=== PATIENT | female | born 1960 | race Caucasian/White ===

== ENCOUNTER 2018-10-09 06:45 | Day surgery (SDC) | payer OTHER ==
[~2018-10-09] VITALS: Ht 157.5 cm; Wt 79.2 kg
[2018-10-09] VITALS (9 sets, daily range): BP systolic 133–142; BP diastolic 69–83; PULSE 86–97; RESP 12–21; Ht 157.5 cm; Wt 79.2 kg
[2018-10-09] MEDS ORDERED: CEFAZOLIN 2 GM/50 ML (PMX) 50 ML IVPB SCH (07:00)
[2018-10-09] MEDS ORDERED: PIOG30TA12 PO (09:47)
[2018-10-09] MEDS ORDERED: METF100010 PO (09:47)
[2018-10-09] MEDS ORDERED: LISI2.5T59 PO (09:48)
[2018-10-09] MEDS ORDERED: SIMV20TA PO (09:48)
[2018-10-09] MEDS ORDERED: PANT40TA3 PO (09:48)
--- NOTE | 2018-10-09 11:03 | PREAC ---
Date/Time of Note Date/Time of Note DATE: 10/09/18 TIME: 11:02 Anesthesia Eval and Record Evaluation Time Pre-Procedure Interview DATE: 10/09/18 TIME: 11:02 Age 58 Sex female NPO: 8 hrs Preoperative diagnosis Left breast mass Planned procedure Needle localized excision of left breast mass Past Medical History Past Medical History: Includes Cardio: HTN, Dyslipidemia Endo: Diabetes GI: Obesity Surgery & Anesthesia Issues No known issue Meds Anticoagulation: No Beta Avril within 24 hr: No Reason Beta Avril not given: Pt. not on B-Avril Reported Medications Pantoprazole* (Protonix*) 40 Mg Tablet.dr, 40 MG PO DAILY, TAB 10/09/18 Lisinopril* (Lisinopril*) 2.5 Mg Tablet, 2.5 MG PO DAILY, #30 TAB 10/09/18 Simvastatin* (Zocor*) 20 Mg Tablet, 20 MG PO QHS, #30 TAB 10/09/18 Pioglitazone Hcl* (Actos*) 30 Mg Tablet, 30 MG PO DAILY, #30 TAB 10/09/18 Metformin Hcl* (Metformin Hcl*) 1,000 Mg Tablet, 1000 MG PO WITH BREAKFAST DINNE, #60 TAB 10/09/18 Current Medications Cefazolin Sodium/ Dextrose 50 ml @ 100 mls/hr PRE-OP IVPB ; Start 10/09/18 at 07:00; Stop 10/09/18 at 19:00 Meds reviewed: Yes Allergies Coded Allergies: No Known Allergy (Unverified , 10/09/18) Allergies Reviewed: Yes Labs/Studies Labs Reviewed: Reviewed by anesthesiologist test: N/A Pre-procedure Exam Last vitals Vital Signs Date Temp Pulse Resp B/P (MAP) Pulse Ox O2 O2 Flow FiO2 Time Delivery Rate 10/09/18 98.4 86 18 138/83 97 Room Air 10:08 (101) Airway: Adequate mouth opening Mallampati: Mallampati II Teeth: Normal Lung: Normal Heart: Normal ASA Physical Status ASA physical status: 2 Emergency: None Planned Anesthetic General/MAC: LMA Planned Pain Management Parenteral pain med Pre-operative Attestations Prior to commencing anesthesia and surgery, the patient was re-evaluated, there was verification of: *The patient's identity *The results of appropriate recent lab work and preoperative vital signs *The above evaluation not changing prior to induction *Anesthetic plan, risk benefits, alternative and complications discussed with patient/family; questions answered; patient/family understands, accepts and wishes to proceed. AKIN DE LEON MD Oct 09, 2018 11:03
[2018-10-09] MEDS ORDERED: BUPIVACAINE 0.5%/EPI (SDV) 30 ML INJ ONE (12:01)
[2018-10-09] MEDS ORDERED: ONDANSETRON 4 MG INJ ONE (12:20)
[2018-10-09] MEDS ORDERED: MEPERIDINE 100 MG INJ ONE (12:20)
[2018-10-09] MEDS ORDERED: CEFAZOLIN 1 GM INJ ONE (12:20)
[2018-10-09] MEDS ORDERED: LIDOCAINE 2% (SDV) 5 ML INJ ONE (12:20)
[2018-10-09] MEDS ORDERED: METOCLOPRAMIDE 10 MG INJ ONE (12:20)
[2018-10-09] MEDS ORDERED: PROPOFOL 20 ML ONE (12:20)
--- NOTE | 2018-10-09 13:01 | HPN ---
Date/Time of Note Date/Time of Note DATE: 10/09/18 TIME: 13:01 Interval H&P Admission Note Pt. seen H&P reviewed: No system changes HOMAR MARTIN MD Oct 09, 2018 13:01
[2018-10-09] MEDS ORDERED: LABETALOL HCL 20MG INJ IV PRN (13:30)
[2018-10-09] MEDS ORDERED: MIDAZOLAM 1 MG/ML 2 ML INJ IV PRN (13:30)
[2018-10-09] MEDS ORDERED: METOCLOPRAMIDE 10 MG INJ IV PRN (13:30)
[2018-10-09] MEDS ORDERED: FENTAnyl 50 MCG/ML VIAL IV PRN ×3 (13:30)
[2018-10-09] MEDS ORDERED: MEPERIDINE 25 MG INJ IV PRN (13:30)
[2018-10-09] MEDS ORDERED: OXYCODONE/ACETAMINOPHEN (5/325) TAB PO PRN ×2 (13:30)
[2018-10-09] MEDS ORDERED: EPHEDrine SULFATE 50 MG/5 ML SYG IV PRN (13:30)
[2018-10-09] MEDS ORDERED: DIPHENHYDRAMINE 50 MG INJ IV PRN (13:30)
[2018-10-09] MEDS ORDERED: HYDROmorphONE 1 MG/5 ML IV SYRINGE IV PRN ×2 (13:30)
[2018-10-09] MEDS ORDERED: hydrALAzine 20 MG INJ IV PRN (13:30)
[2018-10-09] MEDS ORDERED: ONDANSETRON 4 MG INJ IV PRN ×2 (13:30→14:30)
--- NOTE | 2018-10-09 14:28 | OPR ---
Date/Time of Note Date/Time of Note DATE: 10/09/18 TIME: 14:22 Operative Report Procedure Date: Oct 09, 2018 Preoperative Diagnosis Left breast mass Postoperative Diagnosis Left breast mass Operation/Procedure Performed Excision of left breast mass using wire needle localization Surgeon see signature line Math Interventionist None Anesthesia Type: general Anesthesiologist: AKIN DE LEON MD Estimated Blood Loss: minimal Transfusion none Specimen 1. Left breast mass with wire needle 2. Additional posterior tissue Grafts/Implants none Complications none Pt Condition Post Procedure: stable Disposition: PACU Indications Patient is a 58-year-old female who presented to the office after routine mammogram found a suspicious left breast mass at the line o'clock location of the left breast. This was confirmed via an ultrasound. 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 Given the above findings the patient was scheduled for elective left partial mastectomy with wire needle localization for complete excision and definitive pathological diagnosis. All risks and benefits of the procedure including, but not limited to: Wound infection, excessive bleeding, postoperative seroma/hematoma formation, possible need for subsequent surgeries, loss of nipple areolar sensation, etc. were explained to the patient in full detail. She fully understood and wished to proceed with the procedure. Informed consent was obtained. Procedure Description The patient was brought to the operating room and placed supine on the operating table. Bilateral sequential compression devices were placed on both lower extremities. A dose of broad-spectrum perioperative intravenous antibiotics was given. Patient had undergone preoperative wire needle localization. After the induction of smooth general anesthesia the patient's left breast and chest wall were prepped and draped in standard surgical fashion. After performance of the surgical timeout 0.5% Marcaine with epinephrine was injected around the area of the incision. An incision was then made using a 15 blade scalpel from approximately the 9:00 location to the 10:00 location of the left breast, in the outer quadrant. Incision was carried down through the skin and subcutaneous tis sues to the level of breast tissue using sharp dissection and Bovie electrocautery. Flaps were then raised circumferentially. The wire needle was identified. Its external portion was cut. The wire was then delivered through the skin into the field. Circumferential core of tissue was then dissected around the wire. The specimen was then transected at its base. Specimen was the n passed off the field. Intraoperative mammography showed the specimen to contain the wire needle in its entirety, however the prior biopsy clip was not visualized. An additional core of posterior tissue was taken and then passed off the field. Intraoperative mammography showed the clip to be contained within this specimen in its entirety. At this point hemostasis was inspected for and noted to be total. The wound cavity was irrigated and the irrigant returned clear. The wound was then closed in layers using interrupted 3-0 Vicryl sutures for the dermal layer. The skin was then reapproximated using a running 4-0 Monocryl suture in subcuticular fashion. Incision was cleaned and Dermabond was applied as well as sports bra. The patient was then awoken from anesthesia and transferred to the recovery room in stable condition. All counts were correct at the end of the case 2. HOMAR MARTIN MD Oct 09, 2018 14:28
[2018-10-09] MEDS ORDERED: IBUPROFEN 600 MG TAB PO PRN (14:30)
[2018-10-09] MEDS ORDERED: KETOROLAC 30 MG INJ IV PRN (14:30)
[2018-10-09] MEDS ORDERED: HYDROCODONE/APAP (5/325) TAB PO PRN (14:30)
[2018-10-09] MEDS: HYDROmorphONE 1 MG/5 ML IV SYRINGE IV PRN ×2 (14:43→14:49)
--- NOTE | 2018-10-09 16:06 | PAC ---
Date/Time of Note Date/Time of Note DATE: 10/09/18 TIME: 16:05 Post-Anesthesia Notes Post-Anesthesia Note Last documented vital signs Vital Signs Date Temp Pulse Resp B/P (MAP) Pulse Ox O2 O2 Flow FiO2 Time Delivery Rate 10/09/18 97.8 94 18 137/69 95 Room Air 15:54 (91) Activity: WNL Respiratory function: WNL Cardiovascular function: WNL Mental status: Baseline Pain reasonably controlled: Yes Hydration appropriate: Yes Nausea/Vomiting absent: Yes AKIN DE LEON MD Oct 09, 2018 16:06
== END 2018-10-09 16:04 | disposition home or self-care (01) ==
LOC: SDS 06:45
PROVIDERS: ATTEND Surgery
DX: D24.2 Benign neoplasm of left breast (principal); E11.9 Type 2 diabetes mellitus without complications; E78.5 Hyperlipidemia, unspecified; K21.9 Gastro-esophageal reflux disease without esophagitis; Z86.718 Personal history of other venous thrombosis and embolism
CPT/HCPCS: 19125; 82962; 88307; J0690; J1170; J2175; J2405; J2765; Z7512; Z7610